=== PATIENT | female | born 1985 | race Caucasian/White ===

== ENCOUNTER 2019-03-04 04:00 | Emergency (ER) | payer MEDICARE ==
[~2019-03-04] VITALS: Ht 167.6 cm; Wt 82.0 kg
[2019-03-04] MEDS ORDERED: OXYCODONE HCL/ACETAMINOPHEN 5/325MG TABLET PO ONE (06:15)
[2019-03-04 06:45] VITALS: BP 104/59
== END 2019-03-04 08:44 | disposition home or self-care (01) ==
LOC: ER 04:00
DX: M25.572 Pain in left ankle and joints of left foot (principal); W01.0XXA Fall on same level from slipping, tripping and stumbling without subsequent striking against object, initial encounter; Y93.89 Activity, other specified; Y92.098 Other place in other non-institutional residence as the place of occurrence of the external cause
CPT/HCPCS: 73600; 82962; 99283